=== PATIENT | female | born 1970 | race Caucasian/White ===

== ENCOUNTER 2016-10-01 06:53 | Day surgery (SDC) | payer OTHER ==
[~2016-10-01] VITALS: Ht 157.5 cm; Wt 161.0 kg
[2016-10-01] VITALS (9 sets, daily range): BP systolic 116–149; BP diastolic 49–67; PULSE 98–104; RESP 12–19; O2SAT 92–98
[2016-10-01] MEDS: Lactated Ringer's 1,000 ML IV ONE ×2 (05:31→08:40)
[~2016-10-01 06:53] MED LIST: ALBU18HF INH; CYCL5TAB PO; FLUT1AER IH; FURO40TA4 PO; GABA-500 PO; IBUP-1827 PO; IPRA3AMP IH; KETACONAZOLE SHAMPOO TP; LOSA50TA37 PO; METF-777 PO; METR45GE TP; MONT10TA23 PO; OXYC1TAB24 PO; POTA10TA12 PO
[2016-10-01] MEDS ORDERED: fentaNYL-PF 50 mCg/mL 2 mL Inj ONE (06:54)
[2016-10-01] MEDS ORDERED: Remifentanil 1 mg/3 mL Inj ONE (06:54)
[2016-10-01] MEDS ORDERED: Ondansetron 2 mg/mL 2 mL Inj ONE (06:54)
[2016-10-01] MEDS ORDERED: Propofol 10,000 mCg/mL 20 mL Inj ONE (06:54)
[2016-10-01] MEDS ORDERED: Succinylcholine Chloride 20 mg/mL 5 mL Inj ONE (06:54)
[2016-10-01] MEDS ORDERED: MetoCLOpramide 5 mg/mL 2 mL Inj ONE (06:54)
[2016-10-01] MEDS ORDERED: Lactated Ringer's 500 ML IV PRN (09:11)
[2016-10-01] MEDS ORDERED: Lactated Ringer's 1,000 ML IV SCH (09:11)
--- NOTE | 2016-10-01 09:11 | PCM.HPANE ---
Patient Data Surgeon Admitting Provider: Attending Provider:Jayro Choudhury DO Primary Care Physician:Darlene Cuellar MD Other Provider:Lynette Valerio Anesthesia Reason for Visit Right Torn Medial Meniscus Ht/WT & BMI Height (Feet): 5 Height (Inches): 2.00 Weight (Kilograms): 161.0 Body Mass Index 65.00 Allergies Coded Allergies: clavulanic acid (Verified Allergy, Severe, ANAPHYLAXIS, 09/28/16) amoxicillin (Verified Adverse Reaction, Severe, ITCHING, 09/28/16) Uncoded Allergies: MAYRA CRAB (Allergy, Unknown, UNKNOWN, 12/29/15) Past Anesthesia History Anesthesia History: Denies:: Abnormal Airway, Anesthesia Reactions, Difficult Intubation, Fam Anesthesia Reaction, Fam Malignant Hypertherm, Malignant Hyperthermia Diabetes History Hx Diabetes?: Yes Type of Diabetes: Type II Glycemic Control: Oral Medication Current Bedside Blood Glucose: 126 MRSA MRSA: No Medications Hypertension Medication: Yes (LOSARTAN) Home Meds Incl Beta Feli: No Reported Medications Metronidazole (Metronidazole Gel)1 Applic/0.25 Gm Gel1 Applic TP BID #45 GM Ref 0 0.75% 09/28/16 [Ketaconazole Shampoo] No Conflict Check1 Applic TP 2X/WEEK 2% 09/28/16 Gabapentin 100 Mg Capsule0-300 Mg PO HS PRN PRN 30 Days Ref 0 09/28/16 Fluticasone/Vilanterol (Breo Ellipta 100-25 Mcg INH)1 Each Aer.pow.ba1 Each IH DAILY PRN For Shortness of Breath 09/28/16 oxyCODONE-Acetaminophen 5-325 mg 1 Each Tablet1 Tab PO Q6H PRN For Pain Ref 0 09/28/16 Albuterol Sulfate (Ventolin HFA Inhaler)200 Puff/18 Gm Inhaler2 Puff INH Q4 PRN For Wheezing #1 INHALER Ref 0 03/15/16 Potassium Chloride ER 10 Meq [id number] Meq PO BID Ref 0 TAKE WITH FOOD 03/15/16 Montelukast 10 Mg Heioei38 Mg PO HS Ref 0 03/15/16 Metformin HCl (Metformin HCl ER)500 Mg [id number] Mg PO BID 03/15/16 Losartan Potassium 50 Mg Rpwuzt77 Mg PO DAILY 03/15/16 Ipratropium/Albuterol Sulfate (Iprat-Albut 0.5-3(2.5) mg/3 mL Inhalant Soln)3 Ml Ampul.neb3 Ml IH Q6 PRN For Shortness of Breath Ref 0 qid and prn up to 6 doses daily 03/15/16 Ibuprofen 600 Mg [id number] Mg PO QID PRN For Pain Ref 0 03/15/16 Furosemide 40 Mg Pjroww19 Mg PO DAILY 03/15/16 Cyclobenzaprine 5 Mg Tablet5-10 Mg PO HS PRN Spasm Ref 0 03/15/16 Discontinued Reported Medications Budesonide/Formoterol 160-4.5 mcg Inh (Symbicort 160-4.5 mcg Inh)120 Puff Inhaler2 Puff INHALATION BID #1 INHALER Ref 0 03/15/16 oxyCODONE-Acetaminophen 10-325 mg 1 Each Tablet1 Tablet PO Q6H PRN For Pain Ref 0 03/15/16 History History of ENT Problems?: Yes HEENT History: Positive for:: Sinus Problem (allergic rhinitis) 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 Ethan WHITTAKER/SRC-LAST VISIT 01/2014) COPD (PFT 07/2013 PERSISTANT CONTROLLED ASTHMA) Cough Dyspnea (INTERMITTANT WEISS W/ WHEEZING) Use of C-PAP Machine (ALEISHA+ W/ CPAP SLEEP STUDY 01/2014) Use of Inhalers / NEBS Denies:: Emphysema Oxygen Administration Pneumonia Tuberculosis Hx Neurologic Problems?: Yes Neurological History: Positive for:: Dizziness Denies:: Alzheimer's Disease CVA Dementia Headaches Multiple Sclerosis Parkinson's Disease Seizures Other Neurological Pertinent: RLS Hx of GI Problems?: No Gastrointestinal History: Denies:: Cirrhosis Diverticulitis Gall Bladder Disease Gastroesphageal Reflux Gastrointestinal Bleeding Heartburn Hepatitis Hiatal Hernia Liver Disease Rectal Bleeding Hx of Problems?: No Genitourinary History: Denies:: HX of Hemodialysis Kidney Stones Urinary Tract Infection Female Hx: Denies:: Currently Problems with Breasts? Skin History: Denies:: History Skin Disorders? Pressure Ulcers Hx Musculoskeletal Problems?: Yes Musculoskeletal History: Positive for:: Musculoskeletal Trauma (RT KNEE MENISCAL TEAR=CURRENT PROBLEM) Denies:: Back Injury (C/OF CHRONIC LOWER BACK PAIN) Joint Replacement Systemic Lupus Hx of Psycho/Social Problems?: No Psycho Social History: Positive for:: Anxiety (with asthma attacks) Denies:: Bipolar Disorder Hx Depression Suicide Attempt Hx Surgeries?: Yes (B/L CTR'S,RT CTR REVISION,EXC RT GANGLION-WRIST,C/S,DX LAP, TONSILS) Hx Any Other Health Problems?: Yes Other History: Denies:: Cancer Endocrine Disease Hospitalization Thyroid Disease History Blood Transfusions: Denies:: Blood Transfusions Hx Diabetes: YesBedside Blood Glucose: 126 Hx Alcohol Use: YesHx Substance Use: No Smoking Status: Former Smoker Have You Smoked inLast 12 mo: No Stop/Bang S-Snoring: Do You Snore Loudly: No T-Tired: feel tired, fatigued: Yes O-Obsered: Observed not breath: No P-Blood Pressure: treated: No B- Body Mass Index > 35 kg/m2: Yes A- Age over 50: No N- Neck Large Circumference: Yes G- Gender Male: No ALEISHA Total Score: 3 Risk Assessment Category Category 1A: Patient has history of documented sleep apnea, and HAS NOT received any narcotic, sedative or anesthesia administration during this stay. Category 1B: Patient has history of documented sleep apnea, and HAS received any narcotic , sedative or anesthesia administration during this stay Category 2: Patient has SUSPECTED Obstructive Sleep Apnea, and HAS received any narcotic , sedative or anesthesia administration during this stay. Category 3: Patient has SUSPECTED Obstructive Sleep Apnea and HAS NOT received narcotic, sedative or anesthesia administration during this stay. Category 4: Outpatient in Procedural Areas with known sleep apnea or who screen positive for High Risk via the STOP/BANG questionnaire. Exam Exam Vital Signs Vital Signs Date Time Temp Pulse Resp B/P Pulse Ox O2 Delivery O2 Flow Rate FiO2 10/01/16 07:24 CPAP/BIPAP 10/01/16 07:19 36.0 99 18 149/62 96 Room Air General Appearance: Alert, Oriented X3, Cooperative, No Acute Distress HEENT/AIRWAY: MP 3 Lungs: Diminished Heart: Exam Unremarkable Meds/Labs/Diagnostics Admission Meds Current Medications Lactated Ringer's (Lr) 1,000 ml @ 120 mls/hr Q8H20M ONCE IV Last administered on 10/01/16t 05:31; Start 10/01/16 at 00:54; Stop 10/01/16 at 09:13 Bedside Blood Glucose: 126 Plan Impression Patient chart reviewed, patient interviewed and anesthestic plan with risks, benefits, and alternatives discussed, and informed consent obtained. ASA Physical Status: ASA3 Severe Disease Anesthetic Plan: GA Bene/Risks/Altern/Consents: Yes HP Complete Prior to Induction: Yes Eugenio Vo MD Oct 01, 2016 07:52
[2016-10-01] MEDS ORDERED: Ropivacaine-PF 0.5% 30 mL Inj INJ ONE (09:13)
[2016-10-01] MEDS ORDERED: Lidocaine 2%-Epi 1:100,000 20 mL Inj INFILTRATE ONE (09:13)
[2016-10-01] MEDS ORDERED: HYDROmorphone 1 mg/mL Inj IVPUSH PRN (09:15)
[2016-10-01] MEDS ORDERED: Dexamethasone 4 mg/mL Inj IVPUSH PRN (09:15)
[2016-10-01] MEDS ORDERED: Phenylephrine 10,000 mCg/mL Inj IVPUSH PRN (09:15)
[2016-10-01] MEDS ORDERED: MetoCLOpramide 5 mg/mL 2 mL Inj IVPUSH PRN (09:15)
[2016-10-01] MEDS ORDERED: Ondansetron 2 mg/mL 2 mL Inj IVPUSH PRN (09:15)
[2016-10-01] MEDS ORDERED: fentaNYL-PF 50 mCg/mL 2 mL Inj IVPUSH PRN (09:15)
[2016-10-01] MEDS ORDERED: EPHEDrine Sulfate 50 mg/mL Inj IVPUSH PRN (09:15)
[2016-10-01] MEDS ORDERED: oxyCODONE-Acetamin 5-325 mg Tablet PO PRN (09:50)
[2016-10-01] MEDS ORDERED: Acetaminophen IV 1,000 MG in IV Premix 1 EACH IV ONE (09:50)
[2016-10-01] MEDS ORDERED: hydrOXYzine Pamoate 25 mg Capsule PO PRN (09:50)
--- NOTE | 2016-10-01 10:16 | PCM.ANEP1 ---
Post Anesthesia Phase 1 PACU Phase 1 Assessment Vital Signs Vital Signs Date Time Temp Pulse Resp B/P Pulse Ox O2 Delivery O2 Flow Rate FiO2 10/01/16 10:06 98 14 116/49 93 Room Air 10/01/16 10:03 98 15 121/54 94 Room Air 10/01/16 10:00 38 98 12 94 Room Air 10/01/16 09:55 99 18 118/58 92 Room Air 10/01/16 09:51 104 19 129/56 94 Room Air 10/01/16 09:45 98 14 138/55 98 Simple Mask 10 10/01/16 09:40 38.1 102 14 135/67 96 Simple Mask 10 10/01/16 07:24 CPAP/BIPAP 10/01/16 07:19 36.0 99 18 149/62 96 Room Air Anesthetic Administered: GA Level of Alertness: Awake, talking LARA's with Equal Strength: Yes Pain: No Nausea or Vomiting: No Cardiovascular Function and Hy: Yes Oxygen Delivery: Simple Mask Lungs: Diminished Dermatome Level: Full Sensation Complications: No Eugenio Vo MD Oct 01, 2016 10:16
--- NOTE | 2016-10-12 08:16 | OP ---
[address] [address] OPERATIVE REPORT PATIENT: THEODORA CANDELARIA : 1970 MR#: [id number] ADMIT: 10/01/2016 JOB ID: [id number] DATE OF SURGERY: 10/01/2016 PREOPERATIVE DIAGNOSIS(ES): Right knee torn medial meniscus. POSTOPERATIVE DIAGNOSIS(ES): Right knee torn medial meniscus with loose joint body. PROCEDURE: Right knee video arthroscopy with removal of loose joint body, partial medial meniscectomy. SURGEON: Jayro Choudhury DO ANESTHESIA: LMA general. INDICATIONS: The patient is a 46-year-old female who injured her knee at about two years ago with a twisting type injury. She had persistent pain with twisting movements. Had tried a cortisone injection. Continued to have pain and wished to proceed with surgical intervention for her torn meniscus. We discussed risks, benefits and possible complications of surgery. All questions were answered and she wished to proceed. PROCEDURE IN DETAIL: The patient is brought to the operating room. She was given a preoperative LMA general anesthetic and the right lower extremity was sterilely prepped and draped. An incision was made over the anterolateral knee at the level of the joint line. The blunt trocar was introduced into the knee. Inspection was undertaken. She was found to have a tear in the medial meniscus as well as a loose chondral joint body. 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 The meniscus was resected back to a stable base with a combination of biters and shaver, and the loose joint body was removed with a grasper. Her ACL was found to be intact. Her lateral compartment was in fairly good condition, with some mild degenerative fraying of the meniscus and some C1-C2 chondromalacia of her lateral femoral condyle. The scope was then removed and the portals were closed with interrupted nylon suture. Naropin was added as an adjunct local anesthetic. Sterile dressings were applied. The patient tolerated the procedure well. Blood loss was minimal. POSTOPERATIVE PROTOCOL: Have the patient weightbear to tolerance. Use a walker or crutches as needed for ambulation. Ice and elevate and follow up in the clinic in two weeks or sooner if needed.
== END 2016-10-01 23:59 | disposition home or self-care (01) ==
LOC: SAS 06:53
PROVIDERS: ATTEND Orthopaedic Surgery
DX: M23.203 Derangement of unspecified medial meniscus due to old tear or injury, right knee (principal); M23.41 Loose body in knee, right knee; M22.41 Chondromalacia patellae, right knee; E78.5 Hyperlipidemia, unspecified; E11.9 Type 2 diabetes mellitus without complications; J45.909 Unspecified asthma, uncomplicated; E66.01 Morbid (severe) obesity due to excess calories; F41.9 Anxiety disorder, unspecified; G47.33 Obstructive sleep apnea (adult) (pediatric); Z68.44 Body mass index [BMI] 60.0-69.9, adult; Z79.84 Long term (current) use of oral hypoglycemic drugs; Z87.891 Personal history of nicotine dependence
CPT/HCPCS: 29881; J0330; J1885; J2405; J2765; J2795; J3010; J7120